=== PATIENT | female | born 1985 | race Two or more races ===

== ENCOUNTER 2020-10-30 11:16 | Emergency (ER) | payer MEDICAID ==
[~2020-10-30] VITALS: Ht 160 cm; Wt 105.3 kg
--- NOTE | 2020-10-30 11:31 | NUR ---
[employer]: EKG DONE IN TRIAGE.
--- NOTE | 2020-10-30 11:47 | NUR ---
ERMD AT BEDSIDE.
[2020-10-30 11:49] VITALS: BP 149/74
--- NOTE | 2020-10-30 11:49 | NUR ---
PT AMBULATORY TO ROOM 2 W/ C/O HERPES OUTBREAK IN HER MOUTH. STATES THAT SHE WAS DX W/ HERPES A FEW YEARS AGO AND ATE BANANAS THAT MADE THEM POP AND GO AWAY. PT STATES SHE HAD SEX W/ HER S/O LAST NIGHT AND FELT THE BUMPS. PT RESTING ON GURNEY. NADN. PT DIAPHORETIC IN ROOM AND TACHYCARDIC. PLACED ON CARDIAC MONITORS. PT STATES SHE AMBULATED FROM BUS STATION TO [facility]. ERP DR. MONTALVO AT BEDSIDE FOR EVAL.
== END 2020-10-30 12:15 | disposition home or self-care (01) ==
LOC: ED 12:09
DX: R00.0 Tachycardia, unspecified (principal); R51.9 Headache, unspecified
CPT/HCPCS: 93005; 99283